=== PATIENT | female | born 1950 | race Caucasian/White ===

== ENCOUNTER → 2016-09-21 13:03 | Outpatient (CLI) | payer MEDICARE ==
[2016-09-21 13:57] LABS: CREATININE - SERUM 1.6 mg/dL (0.6-1.3)
== END | disposition home or self-care (01) ==
LOC: D.CT 13:03
PROVIDERS: Surgery
DX: R10.9 Unspecified abdominal pain (principal)

== ENCOUNTER 2016-09-29 06:24 | Outpatient (CLI) | payer MEDICARE ==
[~2016-09-29] VITALS: Ht 172.7 cm; Wt 68.2 kg
--- NOTE | ~2016-09-29 | HEMODYNAMI ---
PATIENT:NEAL DE JESUS MEDICAL RECORD: [id number] : 52 LOCATION:[facility] ADMISSION DATE: 09/29/16 Generatedon:09/29/201610:34 Patient name: NEAL DE JESUS Patient #: [id number] SSN: DO B: 1950 Date of study: 09/29/2016 Page: Of Hemodynamic Procedure Report Patient Data Patient Demographics Procedure consent was obtained First Name: NEAL Gender: Female Last Name: LIZA : 1950 [facility] Initial: DOUGIE Age: 66 year(s) Patient #: [id number] Race: Unknown Additional ID: [id number] Contact details [address]: [address] [place] [address] State: [place] City: [place] Zip code: [address] Past Medical History Allergies Allergen Reaction Date Comments Reported Iodine 09/29/2016 Sulfa drugs 09/29/2016 Admission Admission Data Admission Date: 09/29/2016 Admission Time: 6:24 Height (in.): 68 BSA: 1.81 (m2) Height (cm.): 172.72 BMI: 22.81 (kg/m2) Weight (lbs.): 150 Weight (kg.): 68.04 Procedure Procedure Types Cath Procedure Peripheral Cath Diagnostic Procedure Cath Peripheral Abd/Extremity Renal Bilat Renal Arteriogram Procedure Description Procedure Date Procedure Date: 09/29/2016 Procedure Start Time: 9:42 Procedure Staff Name Function Joshua Dorman MD Performing Physician Gonzalo Buenrostro RT Scrub Mara Soni RN Nurse Terrie Santos RT Steam Hand Terrie Santos RT Monitor Procedure Data Cath Procedure Fluoroscopy Diagnostic fluoroscopy Total fluoroscopy Time: 3.7 time: 3.7 min min Diagnostic fluoroscopy Total fluoroscopy dose: 168 dose: 168 mGy mGy Contrast Material Contrast Material Type Amount (ml) Isovue 300 35 Entry Location Entry Primary Successful Side Size Upsize Upsize Entry Closure Succes sful Closure Location (Fr) 1 (Fr) 2 (Fr) Remarks Device Remarks Femoral Mynx artery Assembler Arranger 6Fr/7Fr Diagnostic catheters Device Type Used For End Catheter Placement Angiodynamics SOS OMNI 2 NON B 5FR 65CM catheter Merit ULTRA BOLUS FLUSH 5Fr 65CM catheter Procedure Medications Medication Administration Route Dosage Oxygen NC 3 l/min Lidocaine 1% added to field 20 Fentanyl I.V. 50 mcg Versed I.V. 1 mg Fentanyl I.V. 50 mcg Versed I.V. 1 mg Hemodynamics Rest BSA: 1.81 (m2) O2 Consumption: Estimated: 168.18 (ml/min) O2 Consumption indexed : Estimated:92.92 (ml/min/m) Heart Rate: 69 (bpm) Snapshots Pre Cath Intra NCS Post Cath Vital Signs Time Heart Resp SPO2 NIBP (mmHg) Rhythm Pain Sedation Rate (ipm) (%) Status Level (bpm) 9:44:41 64 16 98 135/69(113) NSR 0 (11) 10(A) , No pain 9:48:57 66 16 100 134/63(106) NSR 0 (11) 10(A) , No pain 9:53:11 67 16 99 134/64(107) NSR 0 (11) 10(A) , No pain 9:57:25 67 15 97 140/67(117) NSR 0 (11) 10(A) , No pain 10:01:39 70 17 99 149/74(119) NSR 0 (11) 10(A) , No pain 10:05:59 67 21 98 129/64(96) NSR 0 (11) 10(A) , No pain 10:10:13 67 15 100 120/60(108) NSR 0 (11) 10(A) , No pain 10:14:23 67 18 97 137/66(109) NSR 0 (11) 10(A) , No pain 10:18:39 64 14 98 137/64(102) NSR 0 (11) 10(A) , No pain 10:22:55 67 21 99 129/59(95) NSR 0 (11) 10(A) , No pain 10:27:05 68 14 97 136/70(107) NSR 0 (11) 10(A) , No pain 10:31:19 87 13 100 138/69(112) NSR 0 (11) 10(A) , No pain Medications Time Medication Route Dose Verified Delivered Reason Notes Effective ness by by 9:45:10 Oxygen NC 3 Mara Mara Per l/min Nae Nae protocol RN RN 9:45:23 Lidocaine added 20ml Mara Joshua for local 1% to vial Nae Dandy anesthetic field TERESA HERNANDEZ 10:00:11 Fentanyl I.V. 50 Mara Mara for mcg Nae Nae sedation RN RN 10:00:21 Versed I.V. 1 mg Mara Mara for Nae Nae sedation RN RN 10:15:23 Fentanyl I.V. 50 Mara Mara for mcg Nae Nae sedation RN RN 10:15:42 Versed I.V. 1 mg Mara Mara for Nae Nae sedation RN curtain cleaner Log Time Note 8:58:05 Patient Weight : 150 kg 8:58:08 Patient Height : 68 cm 8:58:39 Use device set IR Diagnostic 8:58:42 Sterile Angiographic Pack opened to sterile field. 8:58:43 Bag Decanter opened to sterile field. 8:58:44 Acist Manifold opened to sterile field. 8:58:46 Acist Hand Control opened to sterile field. 8:58:48 Acist Syringe opened to sterile field. 8:58:58 TUBING, CONTRAST INJCTN HI PRES opened to sterile field. 8:59:23 Cook BENTSON 145cm guide wire opened to sterile field. 8:59:24 Micropuncture VSI 4FR kit opened to sterile field. 8:59:25 Terumo 5Fr [place] Sheath opened to sterile field. 9:12:00 - 9:13:14 Time tracking: Regular hours 9:13:24 Plan of Care:Hemodynamics will remain stable., Cardiac rhythm will remain stable., Comfort level will be maintained., Respiratory function will remain adequate., Patient/ family verbilizes understanding of procedure., Procedure tolerated without complication., Recovers from procedure without complications.. 9:13:35 Patient received from Outpatients to IR Alert and oriented. Tansferred to table in Supine position. 9:13:39 Correct patient and procedure confirmed by team. 9:13:44 Signed procedure consent form obtained from patient. 9:13:46 - 9:13:52 H&P Date Dictated: 09/29/2016 Within 30 days and on chart.. 9:13:54 Pre-procedure instructions explained to patient. 9:13:56 Pre-op teaching completed and patient verbalized understanding. 9:13:58 Family in waiting room. 9:14:00 Patient NPO since Midnight. 9:14:10 Patient allergic to Iodine 9:14:22 Patient allergic to Sulfa drugs 9:14:26 Is the patient allergic to Iodine/contrast media? Yes. 9:14:29 Was the patient premedicated? Yes 9:14:31 Is patient on blood thinner?No 9:14:35 Patient diabetic? No. 9:14:38 - 9:14:39 ----Pre-sedation anethsthesia assessment.---- 9:14:43 Previous problem with sedation/anesthesia? No ? 9:14:47 Snore? No 9:14:56 Sleep apnea? No 9:14:58 Deviated septum? No 9:15:01 Opens mouth fully? Yes 9:15:03 Sticks out tongue? Yes 9:15:06 Airway obstruction? No ? 9:15:16 Dentures? Yes secured 9:15:18 - 9:39:26 Pre procedure: right dorsailis pedis pulse Doppler 9:39:30 Pre procedure: left dorsailis pedis pulse Doppler 9:39:34 Pre procedure: right posterior tibial pulse Doppler 9:39:38 Pre procedure: left posterior tibial pulse Doppler 9:39:46 IV patent on arrival in left forearm with 0.9% NaCl at [facility]. 9:39:53 Right groin area was prepped with chlora-prep and draped in sterile fashion 9:40:14 Physician arrived 9:40:38 --------ALL STOP TIME OUT------ :40:38 Final Timeout: patient, procedure, and site verified with staff and physician. All members of the team are in agreement. 9:40:48 Physical assessment completed. ASA score P 2 - A patient with mild systemic disease as per Joshua Dorman MD. 9:40:55 Sedation plan: IV Moderate Sedation Versed, Fentanyl 9:42:17 Procedure started. 9:42:17 Full Disclosure recording started 9:42:22 Local anesthetic to right femoral artery with Lidocaine 1% by Joshua Dorman MD.INITIAL ACCESS ONLY 9:42:24 Arterial access obtained using ultrasound guidance. 9:43:30 ECG and BP/O2 sat monitors applied to patient. 9:43:33 Baseline sample Acquired. 9:43:33 Vital chart was started 9:43:39 - 9:45:10 Oxygen 3 l/min NC was administered by Mara Soni RN; Per protocol ; 9:45:23 Lidocaine 1% 20ml vial added to field was administered by Joshua arita MD; for local anesthetic; 10:00:11 Fentanyl 50 mcg I.V. was administered by Mara Soni RN; for sedation; 10:00:21 Versed 1 mg I.V. was administered by Mara Soni RN; for sedation; 10:12:30 A Angiodynamics SOS OMNI 2 NON B 5FR 65CM catheter was advanced over th e wire and used for . 10:12:32 Cochrane Sci Choice PT Floppy J 300cm 0.014 guide wi opened to sterile field. 10:12:36 A Merit ULTRA BOLUS FLUSH 5Fr 65CM catheter was advanced over the wire and used for . 10:12:37 Cook JOHN 1 6FR. Guide sheath opened to sterile field. 10:15:23 Fentanyl 50 mcg I.V. was administered by Mara Soni RN; for sedation; 10:15:42 Versed 1 mg I.V. was administered by Mara Soni RN; for sedation; 10:15:58 BasixTOUCH Inflation Syringe opened to sterile field. 10:16:24 HERCULINK ELITE 5 X 18 X 80 stent was deployed across Undefined1 . 10:22:42 MYNX PATIENT ACCESS COORDINATOR 6FR/7FR opened to sterile field. 10:23:37 A sheath was inserted into the Femoral artery 10:23:37 Sheath removed intact; hemostasis achieved with Mynx Assembler Arranger 6Fr/7Fr to th e Femoral artery. 10:25:27 Procedure ended.(Physican Out) 10:25:36 Fluoroscopy time 03.70 minutes. 10:25:43 Fluoroscopy dose: 168 mGy 10:25:43 Flurop Dose total: 168 10:25:48 Contrast amount:Isovue 300 35ml. 10:25:50 Sharps counted by scrub and verified by R.N. 10:33:58 Procedure and supply charges have been captured, reviewed, submitted an d are correct. 10:34:22 Vital chart was stopped Intervention Summary Intervention Notes Time ActionType Lesion and Equipment Action# Pressure Duration Attributes Used 10:16:24 Deploy self Undefined1 HERCULINK 1 expanding ELITE 5 X stent 18 X 80 stent Device Usage Item Name Manufacture Quantity Catalog Number Hospital Part [facility] Lot# / Charge Number Stock Stock Serial# Code Sterile Cardinal 1 [id number] Angiographic Health Pack Bag Decanter Microtek 1 [id number] 41035 [id number] Medical Inc. Acist Acist Medical 1 16962 991673 199524 074965 5 Manifold Systems Inc Acist Hand Acist Medical 1 81777 479567 051602 462326 Control Systems Inc Acist Syringe Acist Medical 1 37183 081567 272897 968293 20 Systems Inc TUBING, [facility] 1 [id number] 616891 957892 331756 5 CONTRAST INJCTN HI PRES Cook BENTSON [facility] 1 [id number] 981581 005834 5 [id number] 145cm guide wire Micropuncture VSI VASCULAR 1 7266V 995073 937287 5 VSI 4FR kit SOLUTIONS Terumo 5Fr Terumo 1 [id number] 063399 062562 679470 40 [place] Sheath Angiodynamics Angiodynamics 1 [id number] 773199 40022 680541 5 SOS OMNI 2 NON B 5FR 65CM catheter Cochrane Sci Cochrane 1 [id number] 551911 846923 588113 5 Choice PT Scientific Floppy J 300cm 0.014 guide wi [facility] 1 [id number] 311394 446529 5 BOLUS FLUSH 5Fr 65CM catheter CosmosID JOHN 1 [facility] 1 [id number] 496633 257792 5 [id number] 6FR. Guide sheath BasixTOUCH [facility] 1 [id number] 462147 740603 796978 5 Inflation Syringe HERCULINK Martin 1 [id number] 323051 739646 5 [id number] ELITE 5 X 18 Vascular X 80 stent MYNX PATIENT ACCESS COORDINATOR Access 1 [id number] 834657 243333 5 [id number] 6FR/7FR Closure Signature Audit Thicket Stage Time Signature Unsigned Intra-Procedure 09/29/2016 Terrie Santos 10:34:20 AM RT(R) Signatures Monitor : Terrie Santos RT Signature : Date : Time : [facility] [address] [place] [address]
[2016-09-29] MEDS ORDERED: ZOVIRAX800 MG PO (07:29)
[2016-09-29] MEDS ORDERED: NORVASC10 MG PO (07:30)
[2016-09-29] MEDS ORDERED: ULTRAM50 MG PO ×2 (07:31→07:45)
[2016-09-29] MEDS ORDERED: COREG6.25 MG PO (07:31)
[2016-09-29] MEDS ORDERED: TEMAZEPAM30 MG PO (07:32)
[2016-09-29] MEDS ORDERED: ROBAXIN-750750 MG PO (07:33)
[2016-09-29] MEDS ORDERED: BENADRYL25 MG PO (07:34)
[2016-09-29] MEDS ORDERED: SOMA350 MG PO (07:35)
[2016-09-29] MEDS ORDERED: GENTAK3.5 GM RIGHT EYE (07:38)
[2016-09-29] MEDS ORDERED: ERYTHROMYCIN EYE OIN RIGHT EYE (07:41)
[2016-09-29] MEDS ORDERED: ZANTAC150 MG PO (07:42)
[2016-09-29] MEDS ORDERED: MIRALAX17 GM PO (07:43)
[2016-09-29] MEDS ORDERED: MACRODANTIN100 MG PO (07:44)
[2016-09-29] MEDS ORDERED: DIOVAN320 MG PO (07:46)
[2016-09-29 08:02] VITALS: BP 107/58; Ht 172.7 cm; Wt 68.2 kg
--- NOTE | 2016-09-29 08:52 | NUR ---
#22 GUAGE IV STARTED PER MARYURI VALLE RN AFTER I ATTEMPTED TWICE AND TERESA LUCAS ATTEMPTED X 1 WITHOUT SUCCESS. PREMEDICATED ORDERED (I HAD NOTIFIED IR ABOUT SEVERE IODINE OR IVP DYE ALLERGY).
[2016-09-29 09:13] LABS: BASOPHILS 0.3 % (0-2); EOSINOPHILS 2.5 % (0-7); HEMATOCRIT 37.6 % (36.0-48.0); HEMOGLOBIN 12.6 g/dL (12-16); IMMATURE GRANULOCYTES 0.4 % (0-5); LYMPHOCYTES 20.3 % (15-50); MCH 33.3 pg (26.0-34.0); MCHC 33.5 g/dL (31.0-37.0); MCV 99.5 fL (80.0-100.0); MEAN PLATELET VOLUME 10.6 fL (7.4-10.4); MONOCYTES 7.2 % (2-11); NEUTROPHILS 69.3 % (40-80); PLATELET COUNT 241 10x3/uL (130-400); RBC 3.78 10x6/uL (4.00-5.40); RDW 13.3 % (11.5-14.5); WBC 9.9 10x3/uL (4.8-10.8)
[2016-09-29 09:28] LABS: APTT 28.9 SECONDS (22.8-39.4); INR 0.92 (0.85-1.17); PROTIME 12.2 SECONDS (11.6-15.0)
[2016-09-29 09:36] LABS: ANION GAP 18.9 mmol/L (8-16); CALCIUM 8.7 mg/dL (8.5-10.1); CARBON DIOXIDE 19.6 mmol/L (21.0-32.0); CREATININE - SERUM 1.3 mg/dL (0.6-1.3); POTASSIUM - SERUM 4.5 mmol/L (3.5-5.1)
--- NOTE | 2016-09-29 11:16 | NUR ---
1100-RECD TO ROOM FROM SPECIALS. POST RENAL ARTERIOGRAM. R GROIN DRY AND INTACT WITH GAUZE AND TEGADERM. DENIES PAIN. R FOOT WITH PALPABLE PULSES. 1110-PLAVIX 150MG GIVEN. MILY PELAYO RN HERE. CALLS IN PLAVIX AND BABY ASA TO [facility] ON [address]. DIRECTIONS TAKE DAILY.
--- NOTE | 2016-09-29 11:38 | NUR ---
1125 ROUNDS BY MILY PELAYO RN,
--- NOTE | 2016-09-29 11:39 | NUR ---
1135 PT. REQUEST PAIN MEDICATION, GIVEN ULTRAM REQUESTED. TIME FRAME FOR TODAYS STAY AND BEDREST INSTRUCTIONS WITH RIGHT LEG STRAIGHT INSTRUCTIONS GIVEN.
== END 2016-09-29 16:00 | disposition home or self-care (01) ==
LOC: D.RAD 06:24 → D.OPS 06:24 → D.RAD 09:00 → D.OPS 16:00
PROVIDERS: Radiology Diagnostic Radiology
DX: I70.1 Atherosclerosis of renal artery (principal); Z90.5 Acquired absence of kidney; Z01.812 Encounter for preprocedural laboratory examination

== ENCOUNTER 2017-01-19 07:48 | Day surgery (SDC) | payer MEDICARE ==
[~2017-01-19] VITALS: Ht 172.7 cm; Wt 71.4 kg
[~2017-01-19 07:48] MED LIST: BENADRYL25 MG PO; COREG6.25 MG PO; DIOVAN320 MG PO; ERYTHROMYCIN EYE OIN RIGHT EYE; GENTAK3.5 GM RIGHT EYE; MACRODANTIN100 MG PO; MIRALAX17 GM PO; NORVASC10 MG PO; ROBAXIN-750750 MG PO; SOMA350 MG PO; TEMAZEPAM30 MG PO; ULTRAM50 MG PO; ZANTAC150 MG PO; ZOVIRAX800 MG PO
[2017-01-19 08:32] VITALS: BP 138/74; Ht 172.7 cm; Wt 71.4 kg
[2017-01-19 09:04] LABS: HEMATOCRIT 36.9 % (36.0-48.0); HEMOGLOBIN 12.5 g/dL (12-16); MCH 33.4 pg (26.0-34.0); MCHC 33.9 g/dL (31.0-37.0); MCV 98.7 fL (80.0-100.0); MEAN PLATELET VOLUME 9.8 fL (7.4-10.4); RBC 3.74 10x6/uL (4.00-5.40); RDW 13.2 % (11.5-14.5); WBC 6.4 10x3/uL (4.8-10.8)
--- NOTE | 2017-01-19 13:40 | NUR ---
1305--IV DC'D, PT UP TO DRESS AT THIS TIME. VIVIANE MOORE 1315--DISCHARGE INSTRUCTIONS GIVEN, PT VERBALIZES UNDERSTANDING. PT OFF UNIT VIA WC. VIVIANE MOORE
--- NOTE | 2017-01-19 18:46 | OP ---
PATIENT NAME: NEAL DE JESUS MEDICAL RECORD: [id number] :52 LOCATION:D.OPS ADMISSION DATE: SURGEON: SHELLIE BURNETT MD DATE OF OPERATION: 01/19/2017 SURGEON: Shellie Burnett MD. PREOPERATIVE DIAGNOSIS: Postoperative abdominal pain. ANESTHESIA: Total intravenous anesthesia. COMPLICATIONS: None. SPECIMENS: None. PROCEDURE: Incomplete colonoscopy. OPERATIVE COURSE: After consent was obtained, the patient was taken to the endoscopy suite, total intravenous anesthesia was given. A timeout was taken to confirm the correct patient and procedure. The patient was placed in left lateral decubitus position. Digital rectal exam was performed. No evidence of mass, no induration. The colonoscope was inserted. Approximately 30 minutes were spent on the colonoscopy. The patient had a moderately inadequate bowel prep. The scope was advanced to the ascending colon. The scope could not be advanced into the cecum, although the cecum was seen at a distance. The entire 30 minutes was spent performing colonoscopic lavage throughout the entire length of the colon for evaluation. There were no polyps or masses identified. There was no diverticular disease noted. The scope was retroflexed in the rectum. There were no masses at this time. Due to inadequacy of the prep, no biopsies were performed, the rectum was very difficult to evaluate. At this time, the colonoscope was withdrawn and the procedure was terminated. The patient tolerated the procedure well. Postoperatively, she was transferred to recovery room in satisfactory condition. The patient will need repeat colonoscopy in 3-6 months. Recommend flexible procto to evaluate rectal wall from previous CT findings. TRANSINT:[id number] Voice Confirmation ID: [id number] DOCUMENT ID: [id number] SHELLIE BURNETT MD at 1846 CC: [id number] DICTATION DATE: 01/19/17 1154 HYDRAULIC LIFT OPERATOR: 01/19/17 1658 [facility] 01/19/[address] [address]
== END 2017-01-19 13:15 | disposition home or self-care (01) ==
LOC: D.OPS 07:48
PROVIDERS: Surgery
DX: R10.9 Unspecified abdominal pain (principal); G43.909 Migraine, unspecified, not intractable, without status migrainosus; I70.1 Atherosclerosis of renal artery; N18.3 Chronic kidney disease, stage 3 (moderate); Z01.812 Encounter for preprocedural laboratory examination; I12.9 Hypertensive chronic kidney disease with stage 1 through stage 4 chronic kidney disease, or unspecified chronic kidney disease

== ENCOUNTER 2017-02-14 06:30 | Day surgery (SDC) | payer MEDICARE ==
[2017-02-11 13:25] LABS: HEMATOCRIT 39.9 % (36.0-48.0); HEMOGLOBIN 13.4 g/dL (12-16); MCH 33.5 pg (26.0-34.0); MCHC 33.6 g/dL (31.0-37.0); MCV 99.8 fL (80.0-100.0); MEAN PLATELET VOLUME 9.5 fL (7.4-10.4); RDW 13.2 % (11.5-14.5); WBC 8.7 10x3/uL (4.8-10.8)
[~2017-02-14 06:30] MED LIST changes: +BAYER CHEWABLE81 MG PO; +PLAVIX75 MG PO
[2017-02-14 07:41] VITALS: BP 116/61; BMI 24.3
[2017-02-14] MEDS ORDERED: HYDROCODON-ACE1 EAC7 PO (11:31)
--- NOTE | 2017-02-14 12:31 | NUR ---
CONSULTED ANETHESIA REGARDING PERSISTENT NAUSEA AFTER RECEVING ZOFRAN 4MG IV. GIVEN VERBAL ORDERS PER DR DAVIS TO GIVE PHENERGAN 25MG IM X1 IN PACU.
--- NOTE | 2017-02-14 13:10 | NUR ---
NOTED IV TO BE INFILTRATED. REMOVED IV TO RIGHT HAND, CATHETER INTACT. APPLIED DIRECT PRESSURE FOR 5 MIN. BLEEDING CONTROLLED. BANDAID APPLIED. APPLIED WARM WASHCLOTH TO THE AREA. CONSULTED ANETHESIA AND REPORTED THE ABOVE. DR. DAVIS TO RESTART IV OVER IN O/P.
--- NOTE | 2017-02-14 14:50 | OP ---
PATIENT NAME: NEAL DE JESUS MEDICAL RECORD: [id number] :52 LOCATION:D.OPS ADMISSION DATE: SURGEON: SHELLIE BURNETT MD DATE OF OPERATION: 02/14/2017 SURGEON: Shellie Burnett MD PREOPERATIVE DIAGNOSES: 1. Porcelain gallbladder. 2. Rectal mass. 3. Diffuse chronic postoperative abdominal pain. POSTOPERATIVE DIAGNOSES: 1. Porcelain gallbladder. 2. Rectal mass. 3. Diffuse chronic postoperative abdominal pain. PROCEDURES PERFORMED: 1. Rectal examination under anesthesia and rectal biopsy. 2. Laparoscopic lysis of adhesions requiring greater than two-thirds of the time of the operation. 3. Laparoscopic cholecystectomy. ANESTHESIA: General. COMPLICATIONS: None. SPECIMENS: 1. Rectal biopsy times 2. 2. Gallbladder. The rectal biopsy was dirty. The laparoscopic cholecystectomy and lysis of adhesions was clean contaminated. ESTIMATED BLOOD LOSS: 50 cc. OPERATIVE COURSE: After consent was obtained, the patient was taken to the operating room and placed in the supine position on the operating table. Next, general anesthesia was given via endotracheal intubation. A timeout was taken to confirm the correct patient and procedure. The patient was placed in lithotomy position. The perineum was prepped and draped in typical sterile fashion. The patient had a previous CT scan showing diffuse rectal wall thickening. Colonoscopy did not reveal any mass. A rigid proctoscopy was performed. There were no masses identified. Random biopsies were taken in the rectal mucosa and sent for permanent pathology. The rectum was then packed with Gelfoam. At this time, the patient was placed in the supine position in the lithotomy position on the operating table. The abdomen was prepped and draped in typical sterile fashion. The patient had a previous open Chevron incision for a right nephrectomy as well as a midline incision for previous exploratory laparotomy and a subxiphoid incision was made and using a 10-mm bladeless optical trocar, the abdomen was entered in the subxiphoid position. There was extensive lysis of adhesions, a small area was found in the left lateral quadrant, a 5-mm trocar was placed. Extensive lysis of adhesions was performed using the Harmonic scalpel, sharp scissor dissection, and blunt dissection. The colon was densely adherent to the anterior abdominal wall along the previous OPERATIVE REPORT [id number] NEAL DE JESUS Chevron incision. There were dense adhesions along the midline with the greater omentum. Laparoscopic lysis of adhesions ensued for approximately 1 hour. Once the right laparoscopic lysis of adhesions was completed, 3 additional 5-mm trocars were placed and the umbilical 5 mm trocar and two 5 mm upper quadrant trocars under direct laparoscopic vision. Once this was complete, the abdominal cavity was then grossly inspected. There was no evidence of bowel injury. No evidence of bleeding. The fundus of the gallbladder was grasped and retracted cephalad. The infant was grasped and retracted laterally. The peritoneum was incised using electrocautery. Blunt dissection was performed until the critical view was obtained. The cystic duct lateral, cystic artery medial, liver in the posterior window, 2 clips were placed in the proximal cystic artery. Three clips were placed in the proximal cystic duct, 1 clip distal. The duct and artery were then transected with laparoscopic Metzenbaum scissors. The remaining portion of the gallbladder was then dissected off the liver bed using electrocautery. It was grasped with the tenaculum and removed through the 10-mm trocar and sent for permanent pathology. The abdomen was then copiously irrigated and suctioned with approximately 3 liters of warm normal saline. Gabrielle was applied to the liver bed as well as the remaining portion of the abdomen due to significant amount of adhesiolysis for ensured hemostasis. Again, the abdominal cavity was inspected. There was no evidence of bowel injury. No evidence of bleeding, no evidence of bile leak. At this time, all remaining instruments were removed. The abdomen was desufflated. Trocars were then removed. Skin was closed with 4-0 Monocryl, Mastisol and Steri-Strips. At the end of the case, all needle and instrument counts were correct. No complications occurred. The patient was extubated and transferred to the PACU in stable condition. TRANSINT:[id number] Voice Confirmation ID: [id number] DOCUMENT ID: [id number] SHELLIE BURNETT MD at 1450 CC: [id number] DICTATION DATE: 02/14/17 1138 HEEL STAINER: 02/14/[address] [facility] [address] [place] [address]
--- NOTE | 2017-02-14 14:55 | NUR ---
DR BURNETT IN TO SEE PATIENT DUE TO COMPLAINTS OF NAUSEA AND PAIN. PATIENT STATES TO DR BURNETT THAT SHE PLANS TO JUST "DEAL WITH THE PAIN" BECAUSE ALL PAIN MEDICATIONS MAKE HER NAUSEATED. REFUSES PAIN MEDICATION AT THIS TIME
--- NOTE | 2017-02-14 15:25 | NUR ---
PATIENT SLEEPING, RESPIRATIONS EVEN AND UNLABORED, INCISIONS X 4 C/D/I
--- NOTE | 2017-02-14 16:02 | NUR ---
PATIENT WALKS TO BATHROOM WITH STAND-BY ASSISTANCE, VOIDS LARGE AMOUNT IN TOILET WITHOUT DIFFICULTY
--- NOTE | 2017-02-14 17:00 | NUR ---
PATIENT STATES "I'M FEELING BETTER AND I FEEL LIKE I THINK I CAN GO HOME." LEFT HAND PIV DC'D WITH TIP INTACT. PATIENT DRESSING IN PERSONAL CLOTHING
--- NOTE | 2017-02-14 17:35 | NUR ---
DISCHARGED HOME VIA WHEELCHAIR TO PRIVATE VEHICLE WITH FRIEND
== END 2017-02-14 17:35 | disposition home or self-care (01) ==
LOC: D.OPS 06:30 → D.PAN 08:30 → D.OPS 08:30 → D.PAN 09:00 → D.OPS 09:00
PROVIDERS: Anesthesiology
DX: R22.2 Localized swelling, mass and lump, trunk (principal); K82.8 Other specified diseases of gallbladder; G89.28 Other chronic postprocedural pain; F17.200 Nicotine dependence, unspecified, uncomplicated; I10 Essential (primary) hypertension; I50.9 Heart failure, unspecified; K21.9 Gastro-esophageal reflux disease without esophagitis; Z01.812 Encounter for preprocedural laboratory examination

== ENCOUNTER → 2017-04-22 11:57 | Outpatient (CLI) | payer MEDICARE ==
[~2017-04-22 11:57] MED LIST changes: +HYDROCODON-ACE1 EAC7 PO
== END | disposition home or self-care (01) ==
LOC: D.US 11:57
DX: R09.89 Other specified symptoms and signs involving the circulatory and respiratory systems (principal)